=== PATIENT | female | born 1990 | race Caucasian/White ===

== ENCOUNTER → 2016-09-06 | Outpatient (CLI) | payer BC ==
[2016-09-06 19:10] LABS: Treponemal Ab Non-Reactive (Non-Reactive)
[2016-09-06 19:24] LABS: HSV I IgG Interp NEGATIVE (NEGATIVE); HSV II IgG Interp NEGATIVE (NEGATIVE)
[2016-09-07 08:11] LABS: HIV-1/HIV-2 Ab Screen NONREAC (NON REAC)
== END | disposition home or self-care (01) ==
LOC: LABWHC1 14:53
PROVIDERS: ATTEND Obstetrics & Gynecology
DX: B99.9 Unspecified infectious disease (principal)
CPT/HCPCS: 36415; 86694; 86695; 86696; 86780; 87389

== ENCOUNTER → 2016-12-15 | Outpatient (CLI) | payer BC ==
[2016-12-16 01:14] LABS: HSV I IgG Interp NEGATIVE (NEGATIVE); HSV II IgG Interp NEGATIVE (NEGATIVE)
== END | disposition home or self-care (01) ==
LOC: LABWHC1 17:16
PROVIDERS: ATTEND Obstetrics & Gynecology
DX: B00.9 Herpesviral infection, unspecified (principal)
CPT/HCPCS: 36415; 86694; 86695; 86696

== ENCOUNTER → 2020-09-17 | Outpatient (CLI) | payer MEDICAID ==
--- NOTE | 2020-09-17 12:42 | ECHOF ---
Referral Reason:R06.00 Dyspnea, R53.83 Fatigue MEASUREMENTS -------- HEIGHT: 170.2 cm WEIGHT: 86.2 kg BP: RVIDd: 2.5 cm (< 3.3) IVSd: 0.9 cm (0.6 - 1.1) LVIDd: 3.4 cm (3.9 - 5.3) LVPWd: 1.1 cm (0.6 - 1.1) IVSs: 1.3 cm LVIDs: 2.5 cm LVPWs: 1.5 cm LAESV Index (A-L): 13.63 ml/m Ao Diam: 2.6 cm (2.0 - 3.7) AV Cusp: 2.0 cm (1.5 - 2.6) LA Diam: 3.1 cm (2.7 - 3.8) MV EXCURSION: 15.488 mm (> 18.000) MV EF SLOPE: 147 mm/s (70 - 150) EPSS: 0.7 cm MV E Rocky: 0.91 m/s MV DecT: 167 ms MV A Rocky: 0.86 m/s MV E/A Ratio: 1.06 RAP: 5.00 mmHg RVSP: 20.18 mmHg FINDINGS -------- This was a technically good study. The left ventricular size is normal. Left ventricular wall thickness is normal. Overall left vent ricular systolic function is normal with, an EF between 55 - 60 %. The diastolic filling pattern is normal for the age of the patient 8.07. The right ventricle is normal in size. The left atrial size is normal. Normal LA size by volume 22+/-6 ml/m2. The right atrial size is normal. Interatrial and interventricular septum intact. The aortic valve is trileaflet and appears structurally normal. The mitral valve is normal. There is trace mitral regurgitation. The tricuspid valve appears structurally normal. Trace tricuspid regurgitation present. Right delilah tricular systolic pressure is normal at < 35 mmHg. There is no pulmonic regurgitation present. The aortic root size is normal. Normal inferior vena cava with normal inspiratory collapse consistent with estimated right atrial pre ssure of 5 mmHg. There is no pericardial effusion. CONCLUSIONS -------- 1. The left ventricular size is normal. 2. Left ventricular wall thickness is normal. 3. Overall left ventricular systolic function is normal with, an EF between 55 - 60 %. 4. The diastolic filling pattern is normal for the age of the patient 8.07 5. There is trace mitral regurgitation. 6. Trace tricuspid regurgitation present. 7. There is no pericardial effusion. [employer]ER: Margaret Cassidy RDCS
== END | disposition home or self-care (01) ==
LOC: RADECHMAIN 11:25
PROVIDERS: ATTEND Family Medicine
DX: I08.1 Rheumatic disorders of both mitral and tricuspid valves (principal); R06.00 Dyspnea, unspecified; R53.83 Other fatigue
CPT/HCPCS: 93306

== ENCOUNTER → 2022-10-05 | Outpatient (CLI) | payer MEDICAID ==
[2022-10-05 08:46] LABS: HCT 40.1 % (34.0-46.0); HGB 13.1 gm/dL (11.4-16.0); MCH 31.3 pg (25.0-35.0); MCHC 32.6 g/dL (31.0-37.0); MCV 95.8 fL (80.0-100.0); Mean Platelet Volume 7.2; Platelet Count 302 k/uL (150-450); RBC 4.19 m/uL (3.80-5.40); WBC 6.9 k/uL (3.8-10.6)
[2022-10-05 16:17] LABS: Hepatitis B Surface Antigen Nonreactive (Nonreactive); Hepatitis C IgG Antibody Nonreactive (Nonreactive)
[2022-10-05 18:12] LABS: HIV 2 AB Non-Reactive (Non-Reactive); HIV AB P24 Non-Reactive (Non-Reactive); HIV P24 AG Non-Reactive (Non-Reactive)
[2022-10-06 06:34] LABS: Toxoplasma Antibody (IgG) <3.0 IU/mL (<7.2); Toxoplasma Antibody (IgM) <3.0 AU/mL (<8.0)
[2022-10-06 11:15] LABS: African American GFR (CKD) >90 (>60 ml/min/1.73 sqM); Non-African American GFR(CKD) >90 (>60 ml/min/1.73 sqM)
[2022-10-06 12:18] LABS: HCG,Quantitative Serum 33891.2 mIU/mL
== END | disposition home or self-care (01) ==
LOC: LABWHC1 07:09
PROVIDERS: ATTEND Obstetrics & Gynecology
DX: Z34.81 Encounter for supervision of other normal pregnancy, first trimester (principal); Z3A.00 Weeks of gestation of pregnancy not specified
CPT/HCPCS: 36415; 82565; 82950; 84702; 85027; 86762; 86777; 86778; 86780; 86803; 86850; 86900; 86901; 87340; 87390

== ENCOUNTER → 2022-10-17 | Outpatient (CLI) | payer MEDICAID ==
--- NOTE | 2022-10-18 08:57 | US ---
EXAMINATION TYPE: Ultrasound OB <= 14 weeks transvaginal DATE OF EXAM: 10/17/2022 4:47 PM COMPARISON: NONE CLINICAL INDICATION: Female, 32 years old with history of Z36.89 ENCOUNTER FOR OTHER SPECIFIED ANTENA MONSERRAT SCREENING; confirm dates EXAM PERFORMED: Transvaginal (TV) and Transabdominal (TA) EXAM MEASUREMENTS: GESTATIONAL AGE / DATING Physician Established: Not yet established Dates by LMP: (10 weeks/1 days) EDC: 05/14/2023 Dates by First Scan: No previous this is first scan Dates by Current Scan for: (8 weeks/0 days) EDC: 05/29/2023 MATERNAL ANATOMY Uterus: 10.1 X 5.6 X 7.4 CM . Small cervical nabothian cysts. Right Ovary: Obscured by bowel gas. Left Ovary: 6.6 x 3.6 x 3.4 cm Post CDS / Adnexa: wnl Presence of free fluid: wnl Presence of corpus luteal cyst: yes left Presence of subchorionic bleed: no GESTATION / SURVEY CRL: 1.63 cm (8 weeks/0 days) Yolk Sac (normal less than 6mm): 4 mm Heart Rate: 174 bpm, upper limits of normal Rhythm: Normal IUP: Viable IUP Beta HcG (if available): Not available at this time IMPRESSION: 1. Single live intrauterine with estimated gestational age of 10 weeks 1 day by LMP. Curren t ultrasound biometry is discordant and smaller (8 weeks 0 days) by CRL. Correlate as to accuracy of recall of LMP. 2. heart rate upper limits of normal at 174 BPM. Consider short interval follow-up. 3. Otherwise, complete survey recommended at 18-20 weeks.
== END | disposition home or self-care (01) ==
LOC: RADUSWWP 16:19
PROVIDERS: ATTEND Obstetrics & Gynecology
DX: Z36.89 Encounter for other specified antenatal screening (principal); Z3A.10 10 weeks gestation of pregnancy
CPT/HCPCS: 76801; 76817

== ENCOUNTER → 2022-11-14 | Outpatient (CLI) | payer MEDICAID | END | disposition home or self-care (01) | LOC: LABWHC1 11:37 | PROVIDERS: ATTEND Obstetrics & Gynecology | DX: Z53.9 Procedure and treatment not carried out, unspecified reason (principal) ==

== ENCOUNTER → 2023-01-02 | Outpatient (CLI) | payer MEDICAID ==
--- NOTE | 2023-01-04 07:38 | US ---
EXAMINATION TYPE: US OB anatomy transabd DATE OF EXAM: 01/02/2023 COMPARISON: NONE CLINICAL INDICATION: Female, 32 years old with history of O36.62X0 MATERNAL CARE FOR EXCESS THADDEUS WTH, SECOND TRI; anatomy TECHNIQUE: Transabdominal (TA) EXAM MEASUREMENTS: GESTATIONAL AGE / DATING Physician Established: (9 weeks/0 days) EDC: 05/29/2023 Dates by First Scan: (9 weeks/0 days) EDC: 05/29/2023 Dates by Current Scan for: (19weeks/5 days) EDC: 05/24/2023 SURVEY IUP: Single PLACENTA: Posterior/fundal PREVIA: No previa SHANNA: 12.9 Normal CERVICAL LENGTH (transabdominal: norm > 3.0cm): 3.24 BIOMETRY PRESENTATION: Variable LIE: Longitudinal BPD: 4.7cm 20weeks / 2 days HC: 17.0cm 19weeks / 5 days AC: 14.1 19weeks / 4 days FL: 2.9cm 19weeks / 0 days ESTIMATED WEIGHT IN GRAMS: 284grams ESTIMATED WEIGHT IN LBS/OZ: 0 lbs. 10oz. WEIGHT PERCENTAGE BASED ON ESTABLISHED DATE: 63% HC/AC: 1.21Normal FL/AC: 21%Normal HEART RATE: 156pm RHYTHM: Normal ANATOMY SEEN (within normal limits): * Lateral Vent (< 1 cm) 0.87cm * Cisterna Magna (< 1.1 cm) 0.5cm * Nuchal Fold (< 0.6 cm) 3.32cm * Cerebellum (varies with age) 1.84cm Choroid Plexus (bilateral) Midline Falx Cavus Septi Pellucidi Four Chamber Heart Outflow tracts: LVOT/RVOT Stomach Situs Nose / Lips Diaphragm Kidneys (bilateral) Bladder Cord Insert Three Vessel Cord Arms (bilateral) Legs (bilateral) ANATOMY SEEN (does not appear within normal limits): ANATOMY NOT SEEN: Longitudinal Spine Transverse Spine unable to obtain spine views due to presentation IMPRESSION: Single viable intrauterine as noted above. Limited evaluation of the spine.
== END | disposition home or self-care (01) ==
LOC: RADUSWWP 16:16
PROVIDERS: ATTEND Obstetrics & Gynecology
DX: O36.62X0 Maternal care for excessive fetal growth, second trimester, not applicable or unspecified (principal); Z3A.19 19 weeks gestation of pregnancy
CPT/HCPCS: 76811

== ENCOUNTER → 2023-01-23 | Outpatient (CLI) | payer MEDICAID ==
--- NOTE | 2023-01-23 14:10 | US ---
EXAMINATION TYPE: US OB Call Back DATE OF EXAM: 01/23/2023 COMPARISON: 01-07 US CLINICAL INDICATION: Female, 32 years old with history of O36.62X0; follow up on spine to complete ou t anatomy GESTATIONAL AGE / DATING Dates by Initial Survey Scan: (22 weeks/0 days) EDC: 05/29/23 HEART RATE: 142 bpm RHYTHM: Normal ANATOMY SEEN (second anatomic survey look): Longitudinal Spine: wnl Transverse Spine: wnl IMPRESSION: Spine as visualized appears to be within normal limits.
== END | disposition home or self-care (01) ==
LOC: RADUSWWP 13:22
PROVIDERS: ATTEND Obstetrics & Gynecology
DX: O36.62X0 Maternal care for excessive fetal growth, second trimester, not applicable or unspecified (principal); Z3A.22 22 weeks gestation of pregnancy

== ENCOUNTER → 2023-03-05 | Outpatient (CLI) | payer MEDICAID ==
--- NOTE | 2023-03-06 17:01 | US ---
EXAMINATION TYPE: US OB >= 14 wk fetus DATE OF EXAM: 03/05/2023 COMPARISON: US CLINICAL INDICATION: Female, 32 years old with history of O24.419GESTATIONAL DIABETES MELLITUS IN PRE GNANCY,; DM TECHNIQUE: Transabdominal GESTATIONAL AGE / DATING Physician Established: (27 weeks/6 days) EDC: 05/29/2023 Dates by LMP: Dates by First Scan: (27 weeks/6 days) EDC: 05/29/2023 Dates by Current Scan: (29 weeks/0 days) EDC: 05/21/2023 SURVEY IUP: Single PLACENTA: Fundal & posterior PREVIA: No Previa SHANNA: 11.1 cm Normal CERVICAL LENGTH (transabdominal: norm > 3.0cm): 3.2 cm BIOMETRY PRESENTATION: Breech BPD: 7.2 cm 29 weeks / 0 days HC: 27.1 cm 29 weeks / 4 days AC: 24.8 cm 29 weeks / 1 days FL: 5.3 cm 28 weeks / 2 days ESTIMATED WEIGHT IN GRAMS: 1283 grams ESTIMATED WEIGHT IN LBS/OZ: 2 lbs. 13 oz. WEIGHT PERCENTAGE BASED ON ESTABLISHED DATES: 74% HC/AC: 1.09 Normal FL/AC: 21 Normal HEART RATE: 153 bpm RHYTHM: Normal IMPRESSION: Single intrauterine gestation estimated at 29 weeks 0 days gestation based on current ultrasound milagros urements. Cardiac activity measures 153 bpm was observed during the study.
== END | disposition home or self-care (01) ==
LOC: RADUSWWP 16:15
PROVIDERS: ATTEND Obstetrics & Gynecology
DX: O24.419 Gestational diabetes mellitus in pregnancy, unspecified control (principal); Z3A.29 29 weeks gestation of pregnancy
CPT/HCPCS: 76805

== ENCOUNTER 2023-04-04 16:32 | Outpatient (CLI) | payer MEDICAID ==
[2023-04-04 17:11] VITALS: BP 114/75; PULSE 82; RESP 16; TEMP 97.7
--- NOTE | 2023-04-04 17:13 | P.MSEPDOC ---
Presenting Problems - Arrival Data Date of Arrival on Unit: 04/04/23 Time of Arrival on Unit: 16:32 Mode of Transport: Ambulatory - Complaint OB-Reason for Admission/Chief Complaint: NST Comment: with script Medical History - Information : 3 Para: 2 Term: 2 : 0 Abortions: Spontaneous or Elective: 0 Number of Living Children: 2 - Gestational Age Gestational Age by YANELI (wks/days): 32 Weeks and 1 Days - History Complications: GDM Review of Systems - Review of Systems Constitutional: No problems Breast: No problems ENT: No problems Cardiovascular: No problems Respiratory: No problems Gastrointestinal: No problems Genitourinary: No problems Musculoskeletal: No problems Neurological: No problems Skin: No problems Vital Signs - Temperature Temperature: 97.7 F Temperature Source: Temporal Artery Scan - Pulse Right Brachial Pulse Rate: 82 Pulse Assessment Method: Automatic Cuff - Respirations Respiratory Rate: 16 Oxygen Delivery Method: Room Air O2 Sat by Pulse Oximetry: 100 - Blood Pressure Right Arm Sitting Blood Pressure: 114/75 Blood Pressure Mean: 88 Blood Pressure Source: Automatic Cuff Medical Screen Scoring - Assessment - Baby A Baseline FHR: 135 Heart Rate - NICHD Category: Category I (Normal) NST: Reactive Physician Notification - Physician Notified Physician Notified Date: 04/04/23 Physician Notified Time: 17:02 Physician: Ronni Mejia New Order Received: Yes (if reactive then october D/) Maternal Triage Index - Maternal Triage Index Presenting for scheduled procedure w/no complaint: Yes - Scheduled/Requesting Priority 5 Scheduled/Requesting Priority 5: No Disposition - Disposition OB Disposition: Triage, Discharge to home I agree with the RN Medical Screening Exam: Yes Case reviewed; plan agreed upon as documented in EMR&OBIX.: Yes Diagnosis: RELATED CONDITIONS, UNSPECIFIED, THIRD TRIMESTER
== END 2023-04-04 17:07 | disposition home or self-care (01) ==
LOC: FBPOP 16:32
PROVIDERS: ATTEND Obstetrics & Gynecology
DX: O26.893 Other specified pregnancy related conditions, third trimester (principal); O24.414 Gestational diabetes mellitus in pregnancy, insulin controlled; Z3A.32 32 weeks gestation of pregnancy; Z91.040 Latex allergy status; Z79.4 Long term (current) use of insulin
CPT/HCPCS: 59025

== ENCOUNTER 2023-04-10 16:30 | Outpatient (CLI) | payer MEDICAID ==
[2023-04-10 17:31] VITALS: BP 116/76; PULSE 91; RESP 16; TEMP 97.5
--- NOTE | 2023-04-11 06:29 | P.MSEPDOC ---
Presenting Problems - Arrival Data Date of Arrival on Unit: 04/10/23 Time of Arrival on Unit: 16:30 Mode of Transport: Ambulatory - Complaint OB-Reason for Admission/Chief Complaint: NST Medical History - Information : 3 Para: 2 - Gestational Age Gestational Age by YANELI (wks/days): 33 Weeks and 0 Days - History Complications: GDM Review of Systems - Review of Systems Constitutional: No problems Breast: No problems ENT: No problems Cardiovascular: No problems Respiratory: No problems Gastrointestinal: No problems Genitourinary: No problems Musculoskeletal: No problems Neurological: No problems Skin: No problems Vital Signs - Temperature Temperature: 97.5 F - Pulse Pulse Oximetery Pulse Rate: 91 Pulse Assessment Method: Pulse Oximetry - Respirations Respiratory Rate: 16 Oxygen Delivery Method: Room Air O2 Sat by Pulse Oximetry: 97 - Blood Pressure Right Arm Blood Pressure: 116/76 Blood Pressure Mean: 89 Blood Pressure Source: Automatic Cuff Medical Screen Scoring - Assessment - Baby A Baseline FHR: 150 Heart Rate - NICHD Category: Category I (Normal) NST: Reactive Physician Notification - Physician Notified Physician Notified Date: 04/10/23 Physician Notified Time: 17:02 Physician: Becca Villela Order Received: Yes (discharge home) Maternal Triage Index - Scheduled/Requesting Priority 5 Scheduled/Requesting Priority 5: Yes Criteria Met for Priority 5: Patient presents to triage for weekly NST Disposition - Disposition OB Disposition: Discharge to home I agree with the RN Medical Screening Exam: Yes Case reviewed; plan agreed upon as documented in EMR&OBIX.: Yes Diagnosis: RELATED CONDITIONS, UNSPECIFIED, THIRD TRIMESTER
== END 2023-04-10 17:22 ==
LOC: FBPOP 16:30
PROVIDERS: ATTEND Obstetrics & Gynecology
DX: O26.893 Other specified pregnancy related conditions, third trimester (principal); O24.414 Gestational diabetes mellitus in pregnancy, insulin controlled; Z3A.33 33 weeks gestation of pregnancy; Z91.040 Latex allergy status; Z79.4 Long term (current) use of insulin
CPT/HCPCS: 59025

== ENCOUNTER 2023-04-17 14:10 | Outpatient (CLI) | payer MEDICAID ==
[2023-04-17 15:18] VITALS: BP 116/67; PULSE 93; RESP 16; TEMP 98.1
--- NOTE | 2023-04-18 17:34 | P.MSEPDOC ---
Presenting Problems - Arrival Data Date of Arrival on Unit: 04/17/23 Time of Arrival on Unit: 14:20 Mode of Transport: Ambulatory - Complaint OB-Reason for Admission/Chief Complaint: NST Comment: biweekly from dr virk office. gest. diabetes Medical History - Information : 3 Para: 2 Term: 2 : 0 Abortions: Spontaneous or Elective: 0 Number of Living Children: 2 - Gestational Age Gestational Age by YANELI (wks/days): 34 Weeks and 0 Days Review of Systems - Review of Systems Constitutional: No problems Breast: No problems ENT: No problems Cardiovascular: No problems Respiratory: No problems Gastrointestinal: No problems Genitourinary: No problems Musculoskeletal: No problems Neurological: No problems Skin: No problems Vital Signs - Temperature Temperature: 98.1 F Temperature Source: Oral - Pulse Right Radial Pulse Rate: 93 Pulse Assessment Method: Automatic Cuff - Respirations Respiratory Rate: 16 Oxygen Delivery Method: Room Air O2 Sat by Pulse Oximetry: 98 - Blood Pressure Left Arm Blood Pressure: 116/67 Blood Pressure Mean: 83 Blood Pressure Source: Automatic Cuff Medical Screen Scoring - Uterine Contractions Intensity: Absent - Assessment - Baby A Baseline FHR: 140 Heart Rate - NICHD Category: Category I (Normal) NST: Reactive Physician Notification - Physician Notified Physician Notified Date: 04/17/23 Physician Notified Time: 14:40 Physician: Ronni Mejia Order Received: (discharge home with instructions.) Maternal Triage Index - Scheduled/Requesting Priority 5 Scheduled/Requesting Priority 5: Yes Criteria Met for Priority 5: nst biweekly. gest diabetes, 34 weeks gestation. reactive nst. baby is transverse lie. Disposition - Disposition OB Disposition: Discharge to home, Written follow up instructions reviewed Discharge Date: 04/17/23 Discharge Time: 14:55 I agree with the RN Medical Screening Exam: Yes Case reviewed; plan agreed upon as documented in EMR&OBIX.: Yes Diagnosis: RELATED CONDITIONS, UNSPECIFIED, THIRD TRIMESTER
== END 2023-04-17 14:55 | disposition home or self-care (01) ==
LOC: FBPOP 14:10
PROVIDERS: ATTEND Obstetrics & Gynecology
DX: O24.414 Gestational diabetes mellitus in pregnancy, insulin controlled (principal); Z3A.34 34 weeks gestation of pregnancy; Z88.5 Allergy status to narcotic agent; Z91.040 Latex allergy status; Z79.4 Long term (current) use of insulin
CPT/HCPCS: 59025; 99213

== ENCOUNTER 2023-04-20 15:04 | Outpatient (CLI) | payer MEDICAID ==
[2023-04-20 16:00] VITALS: BP 117/75; PULSE 108; RESP 16; TEMP 97.7
--- NOTE | 2023-04-22 09:36 | P.MSEPDOC ---
Presenting Problems - Arrival Data Date of Arrival on Unit: 04/20/23 Time of Arrival on Unit: 15:04 Mode of Transport: Ambulatory - Complaint OB-Reason for Admission/Chief Complaint: NST Comment: Patient presents to triage with weekly NST Medical History - Information : 3 Para: 2 - Gestational Age Gestational Age by YANELI (wks/days): 34 Weeks and 3 Days - History Complications: GDM Review of Systems - Review of Systems Constitutional: No problems Breast: No problems ENT: No problems Cardiovascular: No problems Respiratory: No problems Gastrointestinal: No problems Genitourinary: No problems Musculoskeletal: No problems Neurological: No problems Skin: No problems Vital Signs - Temperature Temperature: 97.7 F Temperature Source: Temporal Artery Scan - Pulse Pulse Oximetery Pulse Rate: 108 Pulse Assessment Method: Pulse Oximetry - Respirations Respiratory Rate: 16 Oxygen Delivery Method: Room Air O2 Sat by Pulse Oximetry: 98 - Blood Pressure Right Arm Blood Pressure: 117/75 Blood Pressure Mean: 89 Blood Pressure Source: Automatic Cuff Maternal Triage Index - Stat/Priority 1 Stat Priority 1: No - Urgent/Priority 2 Urgent Priority 2: No - Prompt/Priority 3 Prompt Priority 3: No - Non-Urgent/Priority 4 Non-Urgent Priority 4: No - Scheduled/Requesting Priority 5 Scheduled/Requesting Priority 5: Yes Criteria Met for Priority 5: Patient presents to triage with weekly NST Disposition - Disposition OB Disposition: Discharge to home I agree with the RN Medical Screening Exam: Yes Case reviewed; plan agreed upon as documented in EMR&OBIX.: Yes Diagnosis: RELATED CONDITIONS, UNSPECIFIED, THIRD TRIMESTER
== END 2023-04-20 15:54 ==
LOC: FBPOP 15:04
PROVIDERS: ATTEND Obstetrics & Gynecology
DX: O26.893 Other specified pregnancy related conditions, third trimester (principal); O24.414 Gestational diabetes mellitus in pregnancy, insulin controlled; Z3A.34 34 weeks gestation of pregnancy; Z88.5 Allergy status to narcotic agent; Z91.040 Latex allergy status; Z79.4 Long term (current) use of insulin
CPT/HCPCS: 59025

== ENCOUNTER → 2023-04-23 | Outpatient (CLI) | payer MEDICAID ==
--- NOTE | 2023-04-23 17:38 | US ---
EXAMINATION TYPE: US OB >= 14 wk fetus DATE OF EXAM: 04/23/2023 COMPARISON: OB ultrasound 04/02/2023, 03/05/2023, 01/23/2023, 01/02/2023 CLINICAL INDICATION: Female, 32 years old with history of O36.63X0 MATERNAL CARE FOR EXCESS THADDEUS WTH, TH; growth TECHNIQUE: OBTA GESTATIONAL AGE / DATING Physician Established: (34 weeks/6 days) EDC: 05/29/2023 Dates by LMP: LMP unknown Dates by First Scan: (34 weeks/6 days) EDC: 05/29/2023 Dates by Current Scan: (34 weeks/5 days) EDC: 05/30/2023 SURVEY IUP: Single PLACENTA: Fundal PREVIA: No Previa SAHNNA: 8.3cm Normal CERVICAL LENGTH (transabdominal: norm > 3.0cm): 3.4 cm BIOMETRY PRESENTATION: Breech LIE: Longitudinal BPD: 8.9 cm 35 weeks / 6 days HC: 31.8 cm 35 weeks / 5 days AC: 28.7 cm 32 weeks / 6 days FL: 6.6 cm 34 weeks / 1 days ESTIMATED WEIGHT IN GRAMS: 2260 grams ESTIMATED WEIGHT IN LBS/OZ: 5 lbs. 0 oz. WEIGHT PERCENTAGE BASED ON ESTABLISHED DATES: 17% HC/AC: 1.1 Normal FL/AC: 23 Normal HEART RATE: 150 bpm RHYTHM: Normal IMPRESSION: Single live intrauterine gestation with estimated gestational age of 34 weeks 5 days and estimated du e date of 05/30/2023.
== END | disposition home or self-care (01) ==
LOC: RADUSWWP 16:13
PROVIDERS: ATTEND Obstetrics & Gynecology
DX: O36.63X0 Maternal care for excessive fetal growth, third trimester, not applicable or unspecified (principal); Z3A.34 34 weeks gestation of pregnancy
CPT/HCPCS: 76805

== ENCOUNTER 2023-04-24 12:16 | Outpatient (CLI) | payer MEDICAID ==
[2023-04-24 13:09] VITALS: BP 114/68; PULSE 86; RESP 18; TEMP 97.7
--- NOTE | 2023-04-25 06:55 | P.MSEPDOC ---
Presenting Problems - Arrival Data Date of Arrival on Unit: 04/24/23 Time of Arrival on Unit: 12:16 Mode of Transport: Ambulatory - Complaint OB-Reason for Admission/Chief Complaint: NST Medical History - Information : 3 Para: 2 Term: 2 : 0 Abortions: Spontaneous or Elective: 0 Number of Living Children: 2 - Gestational Age Gestational Age by YANELI (wks/days): 35 Weeks and 0 Days - History Complications: GDM Review of Systems - Review of Systems Constitutional: No problems Breast: No problems ENT: No problems Cardiovascular: No problems Respiratory: No problems Gastrointestinal: No problems Genitourinary: No problems Musculoskeletal: No problems Neurological: No problems Skin: No problems Vital Signs - Temperature Temperature: 97.7 F Temperature Source: Oral - Pulse Right Sitting Brachial Pulse Rate: 86 Pulse Assessment Method: Automatic Cuff - Respirations Respiratory Rate: 18 Oxygen Delivery Method: Room Air O2 Sat by Pulse Oximetry: 98 - Blood Pressure Right Arm Sitting Blood Pressure: 114/68 Blood Pressure Mean: 83 Blood Pressure Source: Automatic Cuff Medical Screen Scoring - Assessment - Baby A Baseline FHR: 130 Heart Rate - NICHD Category: Category I (Normal) NST: Reactive Physician Notification - Physician Notified Physician Notified Date: 04/24/23 Physician Notified Time: 12:45 Physician: Ronni Mejia New Order Received: Yes - Notification Comment Comment: NST reactive, dc home and follow up in the office tomorrow as scheduled. Maternal Triage Index - Maternal Triage Index Presenting for scheduled procedure w/no complaint: Yes - Scheduled/Requesting Priority 5 Scheduled/Requesting Priority 5: No Disposition - Disposition OB Disposition: Discharge to home, Written follow up instructions reviewed Discharge Date: 04/24/23 Discharge Time: 12:59 I agree with the RN Medical Screening Exam: Yes Case reviewed; plan agreed upon as documented in EMR&OBIX.: Yes Diagnosis: RELATED CONDITIONS, UNSPECIFIED, THIRD TRIMESTER
== END 2023-04-24 12:59 | disposition home or self-care (01) ==
LOC: FBPOP 12:16
PROVIDERS: ATTEND Obstetrics & Gynecology
DX: O24.414 Gestational diabetes mellitus in pregnancy, insulin controlled (principal); Z3A.35 35 weeks gestation of pregnancy; Z88.5 Allergy status to narcotic agent; Z91.040 Latex allergy status; Z79.4 Long term (current) use of insulin
CPT/HCPCS: 59025

== ENCOUNTER 2023-04-27 12:55 | Outpatient (CLI) | payer MEDICAID ==
[2023-04-27 14:04] VITALS: BP 118/75; PULSE 82; RESP 17; TEMP 97.3
== END 2023-04-27 13:45 | disposition home or self-care (01) ==
LOC: FBPOP 12:55
PROVIDERS: ATTEND Obstetrics & Gynecology
DX: O24.414 Gestational diabetes mellitus in pregnancy, insulin controlled (principal); Z3A.35 35 weeks gestation of pregnancy; Z79.4 Long term (current) use of insulin; Z88.5 Allergy status to narcotic agent; Z91.040 Latex allergy status
CPT/HCPCS: 59025

== ENCOUNTER → 2023-05-02 | Outpatient (CLI) | payer MEDICAID ==
[2023-05-02 18:22] VITALS: BP 118/76; PULSE 84; RESP 17; TEMP 96.6
== END ==
LOC: FBPOP 17:19
PROVIDERS: ATTEND Obstetrics & Gynecology
DX: O24.419 Gestational diabetes mellitus in pregnancy, unspecified control (principal); Z88.5 Allergy status to narcotic agent; Z91.040 Latex allergy status; Z79.4 Long term (current) use of insulin
CPT/HCPCS: 59025

== ENCOUNTER 2023-05-04 12:43 | Outpatient (CLI) | payer MEDICAID | END 2023-05-04 13:17 | disposition home or self-care (01) | LOC: FBPOP 12:43 | PROVIDERS: ATTEND Obstetrics & Gynecology | DX: O24.414 Gestational diabetes mellitus in pregnancy, insulin controlled (principal); Z88.5 Allergy status to narcotic agent; Z91.040 Latex allergy status; Z3A.00 Weeks of gestation of pregnancy not specified | CPT/HCPCS: 59025 ==

== ENCOUNTER 2023-05-07 16:30 | Outpatient (CLI) | payer MEDICAID ==
[2023-05-07 17:07] VITALS: BP 117/78; PULSE 84; RESP 16; TEMP 98.1
--- NOTE | 2023-05-09 06:35 | P.MSEPDOC ---
Presenting Problems - Arrival Data Date of Arrival on Unit: 05/07/23 Time of Arrival on Unit: 16:30 Mode of Transport: Ambulatory - Complaint OB-Reason for Admission/Chief Complaint: NST Comment: O24.419 Pt presents to triage for biweekly NST per written order from Dr. Mejia. If NST is reactive, pt to be discharged home. Medical History - Information : 3 Para: 2 Term: 2 : 0 Abortions: Spontaneous or Elective: 0 Number of Living Children: 2 - Gestational Age Gestational Age by YANELI (wks/days): 36 Weeks and 6 Days Review of Systems - Review of Systems Constitutional: No problems Breast: No problems ENT: No problems Cardiovascular: No problems Respiratory: No problems Gastrointestinal: No problems Genitourinary: No problems Musculoskeletal: No problems Neurological: No problems Skin: No problems Vital Signs - Temperature Temperature: 98.1 F Temperature Source: Temporal Artery Scan - Pulse Pulse Oximetery Pulse Rate: 84 Pulse Assessment Method: Pulse Oximetry - Respirations Respiratory Rate: 16 Oxygen Delivery Method: Room Air O2 Sat by Pulse Oximetry: 98 - Blood Pressure Right Arm Blood Pressure: 117/78 Blood Pressure Mean: 91 Blood Pressure Source: Automatic Cuff Medical Screen Scoring - Assessment - Baby A Baseline FHR: 145 Heart Rate - NICHD Category: Category I (Normal) NST: Reactive Physician Notification - Notification Comment Comment: Written order from Dr. Mejia to discharge pt home if NST is reactive. Maternal Triage Index - Maternal Triage Index Presenting for scheduled procedure w/no complaint: No - Stat/Priority 1 Stat Priority 1: No - Urgent/Priority 2 Urgent Priority 2: No - Prompt/Priority 3 Prompt Priority 3: No - Non-Urgent/Priority 4 Non-Urgent Priority 4: No - Scheduled/Requesting Priority 5 Scheduled/Requesting Priority 5: Yes Criteria Met for Priority 5: O24.419 Pt presents to triage for biweekly NST per written order from Dr. Mejia. If NST is reactive, pt to be discharged home. Disposition - Disposition OB Disposition: Discharge to home, Written follow up instructions reviewed Discharge Date: 05/07/23 Discharge Time: 16:53 I agree with the RN Medical Screening Exam: Yes Case reviewed; plan agreed upon as documented in EMR&OBIX.: Yes Diagnosis: RELATED CONDITIONS, UNSPECIFIED, THIRD TRIMESTER
== END 2023-05-07 16:53 | disposition home or self-care (01) ==
LOC: FBPOP 16:30
PROVIDERS: ATTEND Obstetrics & Gynecology
DX: O26.93 Pregnancy related conditions, unspecified, third trimester (principal); O24.419 Gestational diabetes mellitus in pregnancy, unspecified control; Z3A.36 36 weeks gestation of pregnancy; Z88.5 Allergy status to narcotic agent; Z91.040 Latex allergy status; Z79.4 Long term (current) use of insulin
CPT/HCPCS: 59025

== ENCOUNTER 2023-05-09 16:40 | Outpatient (CLI) | payer MEDICAID | END 2023-05-09 17:06 | disposition home or self-care (01) | LOC: FBPOP 16:40 | PROVIDERS: ATTEND Obstetrics & Gynecology | DX: O24.414 Gestational diabetes mellitus in pregnancy, insulin controlled (principal); Z88.5 Allergy status to narcotic agent; Z91.040 Latex allergy status; Z79.4 Long term (current) use of insulin | CPT/HCPCS: 59025 ==

== ENCOUNTER 2023-05-15 16:00 | Outpatient (CLI) | payer MEDICAID ==
[2023-05-15 19:20] VITALS: BP 120/75; PULSE 92; RESP 18; TEMP 98.4
--- NOTE | 2023-05-16 06:28 | P.MSEPDOC ---
Presenting Problems - Arrival Data Date of Arrival on Unit: 05/15/23 Time of Arrival on Unit: 16:00 Mode of Transport: Ambulatory - Complaint OB-Reason for Admission/Chief Complaint: NST Comment: pt presents with orders for scheduled weeklo NSTs Medical History - Information : 3 Para: 2 Term: 2 : 0 Abortions: Spontaneous or Elective: 0 Number of Living Children: 2 - Gestational Age Gestational Age by YANELI (wks/days): 38 Weeks and 0 Days - History Complications: GDM Review of Systems - Review of Systems Constitutional: No problems Breast: No problems ENT: No problems Cardiovascular: No problems Respiratory: No problems Gastrointestinal: No problems Genitourinary: No problems Musculoskeletal: No problems Neurological: No problems Skin: No problems Vital Signs - Temperature Temperature: 98.4 F - Pulse Right Pulse Rate: 92 Pulse Assessment Method: Automatic Cuff - Respirations Respiratory Rate: 18 Oxygen Delivery Method: Room Air O2 Sat by Pulse Oximetry: 98 - Blood Pressure Right Arm Blood Pressure: 120/75 Blood Pressure Mean: 90 Blood Pressure Source: Automatic Cuff Medical Screen Scoring - Uterine Contractions Frequency From (mins): 0 Frequency To (mins): 0 Duration From (seconds): 0 Duration To (seconds): 0 - Assessment - Baby A Baseline FHR: 140 Heart Rate - NICHD Category: Category I (Normal) NST: Reactive Physician Notification - Physician Notified Physician Notified Date: 05/15/23 New Order Received: (nst order included discharge if nst reactive) Maternal Triage Index - Maternal Triage Index Presenting for scheduled procedure w/no complaint: Yes - Scheduled/Requesting Priority 5 Scheduled/Requesting Priority 5: No Disposition - Disposition OB Disposition: Discharge to home Discharge Date: 05/15/23 Discharge Time: 16:45 I agree with the RN Medical Screening Exam: Yes Case reviewed; plan agreed upon as documented in EMR&OBIX.: Yes Diagnosis: RELATED CONDITIONS, UNSPECIFIED, THIRD TRIMESTER
== END 2023-05-15 16:45 | disposition home or self-care (01) ==
LOC: FBPOP 16:00
PROVIDERS: ATTEND Obstetrics & Gynecology
DX: O24.414 Gestational diabetes mellitus in pregnancy, insulin controlled (principal); Z3A.38 38 weeks gestation of pregnancy; Z88.5 Allergy status to narcotic agent; Z91.040 Latex allergy status; Z79.4 Long term (current) use of insulin
CPT/HCPCS: 59025

== ENCOUNTER 2023-05-17 12:59 | Outpatient (CLI) | payer MEDICAID ==
[2023-05-17 13:26] VITALS: BP 117/73; PULSE 70; RESP 16; TEMP 97.5
--- NOTE | 2023-05-21 06:42 | P.MSEPDOC ---
Presenting Problems - Arrival Data Date of Arrival on Unit: 05/17/23 Time of Arrival on Unit: 12:59 Mode of Transport: Ambulatory - Complaint OB-Reason for Admission/Chief Complaint: NST Comment: Biweekly NST r/t GDM, insulin controlled Medical History - Information : 3 Para: 2 Number of Living Children: 2 - Gestational Age Gestational Age by YANELI (wks/days): 38 Weeks and 2 Days - History Complications: Breech Review of Systems - Review of Systems Constitutional: No problems, Recent weight loss Breast: No problems ENT: No problems Cardiovascular: No problems Respiratory: No problems Gastrointestinal: No problems Genitourinary: No problems Musculoskeletal: No problems Neurological: No problems Skin: No problems Vital Signs - Temperature Temperature: 97.5 F Temperature Source: Temporal Artery Scan - Pulse Right Sitting Brachial Pulse Rate: 70 Pulse Assessment Method: Automatic Cuff - Respirations Respiratory Rate: 16 Oxygen Delivery Method: Room Air - Blood Pressure Right Arm Sitting Blood Pressure: 117/73 Blood Pressure Mean: 87 Blood Pressure Source: Automatic Cuff Medical Screen Scoring - Assessment - Baby A Baseline FHR: 140 Heart Rate - NICHD Category: Category I (Normal) NST: Reactive Physician Notification - Physician Notified Physician Notified Date: 05/17/23 Physician Notified Time: 13:19 Physician: Ronni Mejia New Order Received: Yes - Notification Comment Comment: Pt with script for biweekly NST, discharge home if reactive. Reactive FHT, Cat 1 EFM. Pt scheduled for version 05/22. Maternal Triage Index - Maternal Triage Index Presenting for scheduled procedure w/no complaint: No - Stat/Priority 1 Stat Priority 1: No - Urgent/Priority 2 Urgent Priority 2: No - Prompt/Priority 3 Prompt Priority 3: No - Non-Urgent/Priority 4 Non-Urgent Priority 4: No - Scheduled/Requesting Priority 5 Scheduled/Requesting Priority 5: Yes Criteria Met for Priority 5: Scheduled NST Disposition - Disposition OB Disposition: Discharge to home, Written follow up instructions reviewed Discharge Date: 05/17/23 Discharge Time: 13:30 I agree with the RN Medical Screening Exam: Yes Case reviewed; plan agreed upon as documented in EMR&OBIX.: Yes Diagnosis: RELATED CONDITIONS, UNSPECIFIED, THIRD TRIMESTER
== END 2023-05-17 13:26 | disposition home or self-care (01) ==
LOC: FBPOP 12:59
PROVIDERS: ATTEND Obstetrics & Gynecology
DX: O24.414 Gestational diabetes mellitus in pregnancy, insulin controlled (principal); Z3A.38 38 weeks gestation of pregnancy; Z88.5 Allergy status to narcotic agent; Z91.040 Latex allergy status
CPT/HCPCS: 59025

== ENCOUNTER 2023-05-22 05:49 | Inpatient (IN) | payer MEDICAID ==
--- NOTE | 2023-05-21 13:12 | P.HPOB ---
History of Present Illness H&P Date: 05/21/23 Chief Complaint: Breech; trial of version, possible CS/tubal This patient is a pleasant 32 yr female EDC 05/29/2023 estimated gestational age 39 0/7 weeks who presents for delivery. Patient has known breech presentation and desires a trial of external cephalic version; if unsuccessful then desires section and tubal ligation. has been complicated by gestational diabetes that has required insulin to control (Dr. Wise). She has had normal growth ultrasounds and testing. has otherwise been uncomplicated. Review of Systems Genitourinary: Reports Menstruation: Reports amenorrhea Past Medical History Past Medical History: No Reported History Additional Past Medical History / Comment(s): Past obstetrical history significant for a term vaginal delivery baby boy 8 lbs. 6 oz. History of Any Multi-Drug Resistant Organisms: None Reported Past Surgical History: No Surgical Hx Reported Past Anesthesia/Blood Transfusion Reactions: No Reported Reaction Past Psychological History: Anxiety, Depression Smoking Status: Never smoker Past Alcohol Use History: None Reported Past Drug Use History: None Reported - Past Family History Mother Family Medical History: No Reported History Medications and Allergies Home Medications Medication Instructions Recorded Confirmed Type Yfe-Wrsk-Uevny Acid 1 cap PO QAM 02/05/14 05/17/23 History [-U Capsule (formulary)] Cetirizine HCl [Zyrtec] 10 mg PO DAILY 04/04/23 05/17/23 History Insulin Detemir (Levemir) [Levemir] 34 units SQ HS 04/04/23 05/17/23 History Allergies Allergy/AdvReac Type Severity Reaction Status Date / Time codeine AdvReac Nausea Verified 05/17/23 13:14 latex AdvReac Rash/Hives Verified 05/17/23 13:14 Exam - OBG Physical Exam Abdomen: bowel sounds normal, no diffuse tenderness, no bruit present, no guarding noted, no hepatomegaly, no splenomegaly, no mass Vulva: both: normal Vagina: normal moisture, no discharge Cervix: no lesion (Cervix is 2/uneffaced in the office), no discharge Uterus: enlarged Results Labs: A positive, Rubella Immune, RPR-HepB/C negative, HIV neg, GBS was positive, cfDNA 46XY, Ultrasounds have been normal (except persistent breech). Assessment and Plan Assessment: This is a pleasant 32 yr female estimated gestational age 39 weeks with insulin dependent gestational diabetes, persistent breech presentation, who presents for delivery. I have discussed options for delivery with the patient and she would like to try an external cephalic version. If this is unsuccessful then would proceed with a section and also requests permanent sterilization. If successful, would proceed with induction of labor. I have discussed the version process and risks including pain, possible placental abruption requiring emergent section. We have also discussed the risks of surgery: infection, bleeding, possible injury to bowel/bladder/vessels and/or other organs. She understands that a tubal ligation is considered permanent, but does have a failure of <10/999 procedures done. All of her questions were answered and a written consent obtained. (1) 39 weeks gestation of Status: Acute Code(s): Z3A.39 - 39 WEEKS GESTATION OF SNOMED Code(s): 45532399 (2) Breech presentation Status: Acute Code(s): O32.1XX0 - MATERNAL CARE FOR BREECH PRESENTATION, UNSP SNOMED Code(s): 5822254 (3) Family planning Status: Acute Code(s): Z30.09 - ENCOUNTER FOR OTH GENERAL CNSL AND ADVICE ON CONTRACEPTION SNOMED Code(s): 375672638 (4) Gestational diabetes mellitus in childbirth, insulin controlled Status: Acute Code(s): O24.424 - GESTATIONAL DIABETES IN CHILDBIRTH, INSULIN CONTROLLED SNOMED Code(s): 42472725 (5) Group B streptococcal carriage complicating Status: Acute Code(s): O99.820 - STREPTOCOCCUS B CARRIER STATE COMPLICATING SNOMED Code(s): 069981324547555
[2023-05-22] MEDS ORDERED: TRANEXAMIC 1,000 MG/100ML-NACL 1,000 MG in EMPTY BAG 1 BAG IV PRN ×2 (06:07→06:26)
[2023-05-22] MEDS ORDERED: LACTATED RINGERS 1,000 ML IV SCH (06:07)
[2023-05-22] MEDS ORDERED: CARBOPROST TROMETHAMINE 250 MCG/ML 1 ML AMP IM PRN ×2 (06:07→06:26)
[2023-05-22] MEDS ORDERED: TERBUTALINE 1 MG/ML VIAL SQ PRN (06:07)
[2023-05-22] MEDS ORDERED: METHYLERGONOVINE 0.2 MG/ML 1 ML AMP IM PRN ×2 (06:07→06:26)
[2023-05-22] MEDS ORDERED: OXYTOCIN 10 UNIT/ML 1 ML VIAL IM PRN ×2 (06:07→06:26)
[2023-05-22] MEDS ORDERED: LIDOCAINE 0.5% (PF) 5 MG/ML (50 ML SDV) SQ PRN (06:07)
[2023-05-22] MEDS ORDERED: miSOPROStoL 200 MCG TAB PO PRN ×2 (06:07→06:26)
[2023-05-22 06:14] LABS: Glucose,Whole Blood 83 mg/dL (70-110)
[2023-05-22 06:21] LABS: Basophils # (A) 0.1 k/uL (0-0.2); Basophils % (A) 1 %; Eosinophils # (A) 0.1 k/uL (0-0.7); Eosinophils % (A) 1 %; HCT 39.1 % (34.0-46.0); HGB 12.7 gm/dL (11.4-16.0); Lymphocytes # (A) 2.4 k/uL (1.0-4.8); Lymphocytes % (A) 24 %; MCH 30.6 pg (25.0-35.0); MCHC 32.5 g/dL (31.0-37.0); MCV 94.4 fL (80.0-100.0); Mean Platelet Volume 7.5; Monocytes # (A) 0.5 k/uL (0-1.0); Monocytes % (A) 5 %; Neutrophils # (A) 6.7 k/uL (1.3-7.7); Neutrophils % (A) 68 %; Platelet Count 258 k/uL (150-450); RBC 4.14 m/uL (3.80-5.40); RDW 13.5 % (11.5-15.5); WBC 9.9 k/uL (3.8-10.6)
[2023-05-22] MEDS ORDERED: LACTATED RINGERS 1,000 ML IV ONE (06:26)
[2023-05-22] MEDS ORDERED: CITRIC ACID-SODIUM CITRATE 15 ML CUP PO ONE (06:26)
--- NOTE | 2023-05-22 06:26 | P.PN ---
Progress Note - Text Progress Note Date: 05/22/23 Patient presents this morning for attempted external cephalic version due to persistent breech presentation. heart tones are reactive. Patient has IV placed. Ultrasound confirms persistent breech presentation. Despite 2 attempts at trial of version I'm unable to turn the baby to cephalic position. Patient will now proceed with primary section and also requesting permanent sterilization.
[2023-05-22] MEDS ORDERED: KETOROLAC 30 MG/ML 1 ML VIAL ONE (07:43)
[2023-05-22] MEDS ORDERED: ONDANSETRON 4 MG/2 ML VIAL ONE (07:43)
[2023-05-22] MEDS ORDERED: MORPHINE SULFATE (PF) 0.3 MG/0.3 ML SYR ONE (07:43)
[2023-05-22] MEDS ORDERED: PHENYLEPHRINE-0.9% NACL SYG 1,000 MCG/10 ML SYRINGE ONE (07:43)
[2023-05-22] MEDS ORDERED: OXYTOCIN 10 UNIT/ML 1 ML VIAL ONE (07:43)
[2023-05-22] MEDS ORDERED: ONDANSETRON 4 MG/2 ML VIAL IVP PRN ×2 (08:23→08:26)
[2023-05-22] MEDS ORDERED: NALOXONE 0.4 MG/ML 1 ML VIAL IV PRN ×2 (08:23→08:26)
--- NOTE | 2023-05-22 08:23 | P.ANPRN ---
Procedure Note - Anesthesia - Epidural/Spinal Spinal Time Out Performed: Yes Date of Procedure: 05/22/23 Procedure Start Time: 07:45 Procedure Stop Time: 07:50 Location of Patient: OB Indication: Acute Post-Operative Pain, Requested by Surgeon Sedation Type: Awake Preparation: Sterile Dressing Position: Sitting Catheter: None Needle Guage: 25 Blood Aspirated: No Pain Paresthesia on Injection Noted: No Events: Uneventful and Well Tolerated (300 g of preservative free morphine administered intrathecally along with bupivacaine.)
[2023-05-22] MEDS ORDERED: diphenhydrAMINE 50 MG/ML 1 ML VIAL IVP PRN (08:26)
[2023-05-22] MEDS ORDERED: SIMETHICONE 80 MG CHEWABLE PO PRN (08:26)
[2023-05-22] MEDS ORDERED: OXYTOCIN 30 UNITS/500 ML NS 30 UNIT in SALINE 1 500ML.BAG IV SCH (08:26)
[2023-05-22] MEDS ORDERED: diphenhydrAMINE 25 MG CAP PO PRN (08:26)
[2023-05-22] MEDS ORDERED: ZOLPIDEM 5 MG TAB PO PRN (08:26)
[2023-05-22] MEDS ORDERED: LANOLIN CREAM 5 GM TUBE TOPICAL PRN (08:26)
[2023-05-22] MEDS ORDERED: METOCLOPRAMIDE 5 MG/ML 2 ML VIAL IVP PRN (08:26)
--- NOTE | 2023-05-22 08:42 | P.OP ---
Date of Procedure: 05/22/23 Preoperative Diagnosis: #1: 39-0/7 week intrauterine . #2: Persistent breech presentation, unsuccessful external cephalic version. #3: Insulin-dependent gestational diabetes. #4: Multi parity desires permanent sterilization Postoperative Diagnosis: Same Procedure(s) Performed: #1: Primary low transverse section. #2: Bilateral partial salpingectomy Anesthesia: spinal Surgeon: Ronni Mejia Data Coder Operator #1: Becca Villela Estimated Blood Loss (ml): 800 Pathology: other (Bilateral fallopian tube segments, placenta) Condition: stable Disposition: floor Indications for Procedure: Please see dictated H&P for intimate details of this patient's admission. In brief summary is a pleasant 32-year-old 3 para 2 female estimated gestational age 39-0/7 weeks who presented this morning for trial of external cephalic version due to persistent breech. Patient has an unsuccessful version and we discussed in the office to proceed with section at this time if this was something successful. She is also requesting permanent sterilization. Patient understands that tubal ligation is permanent however does have a failure rate of less than 5 per thousand procedures done. She also understands that surgery itself and apparently has risks including risks of infection, bleeding, possible injury to bowel, bladder, vessels, and other. All the patient's questions are answered and a written consent is obtained. Operative Findings: This is a vigorous viable male infant Apgars 8 and 8 delivery time is 0800 hours. Patient normal. Uterus, tubes, ovaries. Description of Procedure: This patient has a Esquivel catheter placed to straight drain. She is absolutely taken to the operating room where she sat up and spinal anesthetic is administered without incident. With an adequate level of anesthesia she has abdominal prep and drape. The appropriate timeout is done. Scalpel is then taken and a Pfannenstiel skin incision is made. A second scalpel is taken down the fascia and the fascia scored with a scalpel. Fascial incision extended bilaterally using the Joyce scissors. Fascia is dissected off the rectus muscles sharply. Rectus muscles are the peritoneum was identified and entered sharply. Peritoneal incision extended superior and inferior without difficulty. Bladder blade is then placed. Bladder peritoneum was then taken sharply off the lower uterine segment. Scalpels and taken low transverse uterine incision is then made. Using a hemostat I enter the uterine cavity bluntly and there is loss of clear fluid. Uterine incision extended bluntly. Infant is found to be in the sacrum anterior richar breech presentation. With fundal pressure we have delivery of the breech. Using the usual breech maneuvers we then have delivery of both arms and the head without difficulty. Mouth and nares are bulb suctioned. There is no evidence of a nuchal cord. The umbilical cord is doubly clamped and cut is handed off to the nurses in attendance. This is a vigorous viable male infant Apgars 8 and 8 delivery time is 0800 hours. After delivery of the infant the placenta is manually extracted intact. Uterus is then externalized and uterine incision demarcated with Deluna clamps. Uterine incision then closed using 0 Vicryl running locked fashion 2 layers. Additional [id number]-ah-[id number] sutures are placed on the left side and also on the midline. Excellent hemostasis is noted. The bladder peritoneum was then reapproximated using a 3-0 running fashion. I then turned my attention of left fallopian tube approximately 4 cm from the cornual insertion a small window is made to the mesial salpinx with Bovie cautery. Using 2-0 silk I doubly ligate a 2 cm segment of the tube. This segment is handed off to pathology. Caut erization is done of the tubal ends. Excellent hemostasis is noted using a similar technique on the right side the right fallopian tube segment is excised. Excess fluid is removed from the abdomen and pelvis. Uterus placed back into the abdomen. This time inspect the tubal ends and the uterine incision all appears hemostatic. The parietal peritoneum was then closed using 0 Vicryl running fashion. Rectus muscles are reapproximated in 0 Vicryl interrupted fashion. Fascial incision then closed using 0 PDS. Fascial incision is intact and hemostatic. Subcutaneous tissues and closed using a 3-0 Vicryl. Skin is and closed using deja. All counts are correct 3. There are no complications. is taken to special care nursery for observation and the mother's taken the birthing suite in satisfactory condition.
[2023-05-22] MEDS: ACETAMINOPHEN TAB 500 MG TAB PO SCH ×2 (10:24→18:47)
[2023-05-22] MEDS: KETOROLAC 15 MG/ML 1 ML VIAL IVP SCH ×2 (14:06→22:14)
[2023-05-22] MEDS: IBUPROFEN 600 MG TAB PO SCH ×2 (21:43→22:19)
[2023-05-22] MEDS: LACTATED RINGERS 1,000 ML IV SCH ×2 (21:43→22:19)
[2023-05-22] MEDS: SENNOSIDES-DOCUSATE SODIUM 1 EACH TAB PO SCH ×2 (21:44→22:14)
[2023-05-23] MEDS: ACETAMINOPHEN TAB 500 MG TAB PO SCH ×4 (00:29→19:57)
[2023-05-23] MEDS: LACTATED RINGERS 1,000 ML IV SCH (00:31)
[2023-05-23] MEDS: IBUPROFEN 600 MG TAB PO SCH ×4 (02:37→22:12)
[2023-05-23] MEDS: KETOROLAC 15 MG/ML 1 ML VIAL IVP SCH (04:27)
--- NOTE | 2023-05-23 05:36 | P.PNOBGPC ---
Subjective - Subjective Patient reports: Reports appetite normal, Reports voiding normally, Reports pain well controlled, Reports ambulating normally : doing well, in NICU Objective - Vital Signs Latest vital signs: Vital Signs Temp Pulse Resp BP Pulse Ox 05/23/23 04:00 97.8 F 83 16 122/68 96 05/23/23 00:00 98.0 F 98 16 106/73 97 05/22/23 20:00 97.8 F 92 16 124/76 98 05/22/23 17:00 16 98 05/22/23 16:00 98.1 F 72 16 105/76 99 05/22/23 15:00 16 05/22/23 13:23 98 05/22/23 13:00 16 05/22/23 12:00 70 16 103/67 98 05/22/23 11:23 16 05/22/23 10:33 75 16 113/77 99 05/22/23 10:05 77 16 109/69 98 05/22/23 09:35 66 16 107/70 99 05/22/23 09:23 17 97 05/22/23 09:20 71 16 107/64 98 05/22/23 09:05 80 17 109/61 99 05/22/23 08:50 81 17 110/65 99 05/22/23 08:35 98 F 90 17 108/55 99 05/22/23 08:23 17 98 05/22/23 06:05 98.3 F 104 H 16 129/79 100 Intake and Output 05/22/23 05/22/23 05/23/23 14:59 22:59 06:59 Output Total 1100 400 Balance -1100 -400 Output: Urine 300 400 Estimated Blood Loss 800 Other: # Voids 1 - Exam Lungs: bilateral: normal Chest: Normal S1, Normal S2 Extremities: Present: normal Abdomen: Present: normal appearance, soft. Absent: distention, tenderness Incision: Present: normal, dry, intact Uterus: Present: normal, firm Assessment and Plan Assessment: Postoperative day #1. Patient is resting without new complaints. Vital signs are stable she's afebrile. Uterus is firm nontender and her incision is intact and dry. She is having normal lochia. She is ambulating and urinating without difficulty. She is also tolerating regular diet. Plan today is to allow her to shower, check a CBC, and continue routine postoperative care. (1) 39 weeks gestation of Current Visit: No Status: Acute Code(s): Z3A.39 - 39 WEEKS GESTATION OF SNOMED Code(s): 00584692 (2) Breech presentation Current Visit: No Status: Acute Code(s): O32.1XX0 - MATERNAL CARE FOR BREECH PRESENTATION, UNSP SNOMED Code(s): 8338728 (3) Family planning Current Visit: No Status: Acute Code(s): Z30.09 - ENCOUNTER FOR OT GENERAL CNSL AND ADVICE ON CONTRACEPTION SNOMED Code(s): 872375066 (4) Gestational diabetes mellitus in childbirth, insulin controlled Current Visit: No Status: Acute Code(s): O24.424 - GESTATIONAL DIABETES IN CHILDBIRTH, INSULIN CONTROLLED SNOMED Code(s): 91435836 (5) Group B streptococcal carriage complicating Current Visit: No Status: Acute Code(s): O99.820 - STREPTOCOCCUS B CARRIER STATE COMPLICATING SNOMED Code(s): 784510407565302
--- NOTE | 2023-05-23 07:14 | P.PN ---
Progress Note - Text 05/23/23 628am 32-year-old female status post with spinal Duramorph. Patient seen and evaluated for postop pain control , she has a VAS of 1 with complains of nausea vomiting and minimal pruritus.
[2023-05-23] MEDS: SENNOSIDES-DOCUSATE SODIUM 1 EACH TAB PO SCH ×2 (07:52→19:57)
[2023-05-23 09:32] LABS: Basophils % (A) 0 %; Eosinophils # (A) 0.1 k/uL (0-0.7); Eosinophils % (A) 1 %; HCT 30.4 % (34.0-46.0); HGB 10.2 gm/dL (11.4-16.0); Lymphocytes % (A) 22 %; MCH 31.5 pg (25.0-35.0); MCHC 33.4 g/dL (31.0-37.0); MCV 94.2 fL (80.0-100.0); Mean Platelet Volume 7.5; Monocytes # (A) 0.3 k/uL (0-1.0); Monocytes % (A) 4 %; Neutrophils # (A) 6.4 k/uL (1.3-7.7); Neutrophils % (A) 71 %; Platelet Count 200 k/uL (150-450); RBC 3.23 m/uL (3.80-5.40); RDW 13.6 % (11.5-15.5)
[2023-05-24] MEDS: ACETAMINOPHEN TAB 500 MG TAB PO SCH ×3 (01:59→15:51)
--- NOTE | 2023-05-24 06:18 | P.PNOBGPC ---
Subjective - Subjective Patient reports: Reports appetite normal, Reports voiding normally, Reports pain well controlled, Reports ambulating normally : doing well Objective - Vital Signs Latest vital signs: Vital Signs Temp Pulse Resp BP Pulse Ox 05/24/23 00:42 97.6 F 93 16 113/77 98 05/23/23 15:38 98.6 F 95 18 108/69 97 05/23/23 11:00 18 05/23/23 09:00 18 05/23/23 08:00 18 05/23/23 07:00 98.2 F 84 18 105/66 97 Intake and Output 05/23/23 05/23/23 05/24/23 14:59 22:59 06:59 Other: Voiding Method Toilet # Voids 1 1 - Exam Lungs: bilateral: normal Chest: Normal S1, Normal S2 Extremities: Present: normal Abdomen: Present: normal appearance, soft. Absent: distention, tenderness Incision: Present: normal, dry, intact Uterus: Present: normal, firm - Labs Labs: Abnormal Lab Results - Last 24 Hours (Table) 05/23/23 Range/Units 08:03 RBC 3.23 L (3.80-5.40) m/uL Hgb 10.2 L (11.4-16.0) gm/dL Hct 30.4 L (34.0-46.0) % Assessment and Plan Assessment: Postoperative day #2. Patient is resting without complaints and wishes to go home. Vital signs are stable she is afebrile. Uterus is firm nontender and she is having normal lochia. My impression this is a normal course. Plan is to continue routine postoperative care discharge home later today (1) 39 weeks gestation of Current Visit: No Status: Acute Code(s): Z3A.39 - 39 WEEKS GESTATION OF SNOMED Code(s): 77331530 (2) Breech presentation Current Visit: No Status: Acute Code(s): O32.1XX0 - MATERNAL CARE FOR BREECH PRESENTATION, UNSP SNOMED Code(s): 7343731 (3) Family planning Current Visit: No Status: Acute Code(s): Z30.09 - ENCOUNTER FOR OTH GENERAL CNSL AND ADVICE ON CONTRACEPTION SNOMED Code(s): 689690861 (4) Gestational diabetes mellitus in childbirth, insulin controlled Current Visit: No Status: Acute Code(s): O24.424 - GESTATIONAL DIABETES IN CHILDBIRTH, INSULIN CONTROLLED SNOMED Code(s): 40624236 (5) Group B streptococcal carriage complicating Current Visit: No Status: Acute Code(s): O99.820 - STREPTOCOCCUS B CARRIER STATE COMPLICATING SNOMED Code(s): 404875758291396
--- NOTE | 2023-05-24 06:24 | P.DS ---
Providers Date of admission: 05/22/23 05:49 Expected date of discharge: 05/24/23 Attending physician: Ronni Mejia Primary care physician: Kvng Shah MD - Discharge Diagnosis(es) (1) 39 weeks gestation of Current Visit: No Status: Acute (2) Breech presentation Current Visit: No Status: Acute (3) Family planning Current Visit: No Status: Acute (4) Gestational diabetes mellitus in childbirth, insulin controlled Current Visit: No Status: Acute (5) Group B streptococcal carriage complicating Current Visit: No Status: Acute Hospital Course: Please see dictated H&P for intimate details of this patient's admission. In brief summary this is a pleasant 32-year-old 3 para 2 female 39-0/7 weeks gestation admitted to labor and delivery for trial of external cephalic version. This was unsuccessful and patient underwent a primary low transverse c esarean section and bilateral partial salpingectomy for viable male . Please see dictated operative note. Postoperative patient does well felt be stable for discharge home on postoperative day #2. Patient Condition at Discharge: Good Plan - Discharge Summary New Discharge Prescriptions: New Ibuprofen [Motrin] 600 mg PO Q6H #40 tab oxyCODONE HCL [OxyIR] 5 mg PO Q4HR PRN #18 tab PRN Reason: Pain Scale 4 - 6 No Action Flt-[id number]-Pmpzn Acid [-U Capsule (formulary)] 1 cap PO QAM Cetirizine HCl [Zyrtec] 10 mg PO DAILY Insulin Detemir (Levemir) [Levemir] 44 units SQ HS Discharge Medication List Gjx-Vpot-Rxmmt Acid [-U Capsule (formulary)] 1 cap PO QAM 02/05/14 [History] Cetirizine HCl [Zyrtec] 10 mg PO DAILY 04/04/23 [History] Insulin Detemir (Levemir) [Levemir] 44 units SQ HS 04/04/23 [History] Ibuprofen [Motrin] 600 mg PO Q6H #40 tab 05/24/23 [Rx] oxyCODONE HCL [OxyIR] 5 mg PO Q4HR PRN #18 tab 05/24/23 [Rx] Follow up Appointment(s)/Referral(s): Ronni Mejia MD [STAFF PHYSICIAN] - 1 Week (Please see me on SundayJuly 03 at 11:15am for a post visit. Also see me in 1 week for a postoperative visit) Patient Instructions/Handouts: (DC) Activity/Diet/Wound Care/Special Instructions: No heavy lifting or strenuous activity for 6 weeks. Please call if any fever, chills, excessive vaginal bleeding, and/or abdominal pain.
[2023-05-24] MEDS: SENNOSIDES-DOCUSATE SODIUM 1 EACH TAB PO SCH ×2 (08:40→20:54)
[2023-05-24] MEDS: IBUPROFEN 600 MG TAB PO SCH ×3 (08:40→20:54)
[2023-05-24 09:49] VITALS: RESP 17
[2023-05-24 20:12] VITALS: BP 111/72; PULSE 87; TEMP 97.2
== END 2023-05-24 21:00 | disposition home or self-care (01) | DRG 785 ==
LOC: 4FBP 05:49
PROVIDERS: ADMIT Obstetrics & Gynecology; ATTEND Obstetrics & Gynecology
PROC: 0UB70ZZ Excision of Bilateral Fallopian Tubes, Open Approach (ICD-10-PCS; 2023-05-22)
PROC: 10D00Z1 Extraction of Products of Conception, Low, Open Approach (ICD-10-PCS; principal; 2023-05-22 06:00)
DX: O24.424 Gestational diabetes mellitus in childbirth, insulin controlled (principal); F32.A Depression, unspecified; F41.9 Anxiety disorder, unspecified; O32.1XX0 Maternal care for breech presentation, not applicable or unspecified; O99.824 Streptococcus B carrier state complicating childbirth; O99.344 Other mental disorders complicating childbirth; L29.9 Pruritus, unspecified; O99.73 Diseases of the skin and subcutaneous tissue complicating the puerperium; Z30.2 Encounter for sterilization; Z88.5 Allergy status to narcotic agent; Z91.040 Latex allergy status; Z3A.39 39 weeks gestation of pregnancy; Z37.0 Single live birth
CPT/HCPCS: 83036; 85025; 86850; 86900; 86901

== ENCOUNTER 2023-10-13 20:11 | Emergency (ER) | payer MEDICAID ==
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
[2023-10-13 20:46] VITALS: RESP 18; TEMP 97.8
[2023-10-13] MEDS: ETODOLAC 400 MG TAB PO STA (22:20)
--- NOTE | 2023-10-13 23:16 | CT ---
EXAM: CT Right Lower Extremity Without Intravenous Contrast CLINICAL HISTORY: ITS.REASON CT Reason: pain TECHNIQUE: Axial computed tomography images of the right lower extremity without intravenous contrast. CTDI is 2.8 mGy and DLP is 205.3 mGy-cm. This CT exam was performed using one or more of the following dose reduction techniques: automated exposure control, adjustment of the mA and/or kV according to patient size, and/or use of iterative reconstruction technique. COMPARISON: Plain film evaluation of the right knee joint performed earlier today. FINDINGS: Bones/joints: Distal right femur is unremarkable. Femoral condyles are unremarkable. Patella is unremarkable. Tibial plateau and fibular head are unremarkable. The visualized tibia and fibula are unremarkable. Ankle mortise is preserved. Calcaneus, the midfoot and hindfoot are unremarkable. No acute fracture. No dislocation. Soft tissues: Muscle bundles are unremarkable. IMPRESSION: 1. No acute injury to the distal right femur, the right knee joint, or the right tibia and fibula. 2. Soft tissues are unremarkable
[2023-10-14 01:13] VITALS: BP 132/80; PULSE 98
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
== END 2023-10-14 00:20 | disposition home or self-care (01) ==
LOC: EC 20:11
DX: S80.01XA Contusion of right knee, initial encounter (principal); Z88.5 Allergy status to narcotic agent; Z91.040 Latex allergy status; V89.2XXA Person injured in unspecified motor-vehicle accident, traffic, initial encounter; Y92.410 Unspecified street and highway as the place of occurrence of the external cause
CPT/HCPCS: 99285